=== PATIENT | female | born 1950 | race American Indian/Alaskan Native ===

== ENCOUNTER 2016-09-24 15:04 | Inpatient (IN) | payer MEDICARE ==
[2016-09-24 17:02] LABS: Basophils % (Auto) 0.2 % (0.0-1.8); Hematocrit 40.3 % (30.3-42.9); Hemoglobin 13.5 gm/dl (10.1-14.3); Mean Corpuscular HGB Conc 34 % (30-34); Mean Corpuscular Hemoglobin 33 pg (28-32); Mean Corpuscular Volume 99 fl (79-97); Platelet Count 202 K/mm3 (140-440); Red Blood Count 4.09 M/mm3 (3.65-5.03); Red Cell Distribution Width 13.6 % (13.2-15.2); White Blood Count 14.7 K/mm3 (4.5-11.0)
[2016-09-24 17:33] LABS: Alanine Aminotransferase 49 units/L (7-56); Albumin 3.7 g/dL (3.9-5); Albumin/Globulin Ratio 0.9 %; Alkaline Phosphatase 62 units/L (35-129); Anion Gap 17 mmol/L; BUN/Creatinine Ratio 11.66; Bilirubin,Total 1.1 mg/dL (0.1-1.2); Blood Urea Nitrogen 7 mg/dL (7-17); Calcium 8.7 mg/dL (8.4-10.2); Carbon Dioxide 27 mmol/L (22-30); Chloride 94.5 mmol/L (98-107); Creatine Kinase 41 units/L (30-135); Glucose 124 mg/dL (65-100); Lipase 20 units/L (13-60); Potassium 4.3 mmol/L (3.6-5.0); Sodium 134 mmol/L (137-145); Total Protein 7.9 g/dL (6.3-8.2)
[2016-09-24 17:47] LABS: Creatine Kinase MB < 1.0 ng/mL (0.0-4.0)
[2016-09-24 18:18] LABS: Bilirubin,Urine NEG (Negative); Blood,Urine NEG (Negative); Ketones,Urine TR mg/dL (Negative); Leukocyte Esterase,Urine TR (Negative); Mucus,Urine FEW /HPF; Nitrite,Urine POS (Negative); Protein,Urine <15 mg/dL mg/dL (Negative)
[2016-09-25] MEDS ORDERED: TYLENOL PO ONE (00:42)
[2016-09-25] MEDS ORDERED: ZOFRAN IV ONE (02:43)
[2016-09-25] MEDS ORDERED: MORPHINE IV ONE (02:43)
--- NOTE | 2016-09-25 03:51 | Ultrasound Report ---
FINAL REPORT PROCEDURE: US ABDOMEN LIMITED TECHNIQUE: Real-time sonography in multiple planes of the gallbladder fossa and CBD with imaging of the adjacent liver, pancreas, and right kidney was performed with image documentation. CPT 11724 HISTORY: ruq pain COMPARISON: No prior studies are available for comparison. FINDINGS: Liver: There is diffuse fatty infiltration of the liver. There is no liver mass.. Gallbladder: Gallbladder is distended. There is gallbladder wall thickening and pericholecystic fluid. There is sludge. There are stones in the gallbladder neck.. Intrahepatic bile ducts: Normal . Extrahepatic bile ducts: Common bile duct measures 4 millimeters.. Pancreas: Normal as visualized with suboptimal depiction of the pancreatic tail. Right kidney: Normal echotexture. No focal renal mass, calculus, or hydronephrosis. Other: There is no ascites. IMPRESSION: There is diffuse fatty infiltration of the liver. There is no liver mass.. Gallbladder is distended. There is gallbladder wall thickening and pericholecystic fluid. There is sludge. There are stones in the gallbladder neck.. Common bile duct measures 4 millimeters..
[2016-09-25] MEDS ORDERED: ZOSYN/NS 4.5GM/100ML 4.5 GM/100 ML VIAL IV ONE (04:31)
--- NOTE | 2016-09-25 04:33 | Emergency Department Report ---
ED Abdominal Pain HPI - General Chief Complaint: Abdominal Pain Stated Complaint: ABD PAIN Time Seen by Provider: 09/25/16 02:27 Source: patient Mode of arrival: Ambulatory Limitations: No Limitations - History of Present Illness Initial Comments: 66-year-old female with past medical history of arthritis in, diabetes, and hypertension without any surgical history presents to the hospital complains of right upper quadrant pain radiating to the back since yesterday. Pain is constant, worse palpation or movement. Rated 8/10 in intensity. Initially she felt a gas pain then became more of a stabbing sensation. Positive nausea without vomiting. No reports of fever or dysuria. Severity scale (0 -10): 8 - Related Data Allergies Allergy/AdvReac Type Severity Reaction Status Date / Time No Known Allergies Allergy Unverified 09/24/16 16:32 ED Review of Systems ROS: Stated complaint: ABD PAIN Other details as noted in HPI Comment: All other systems reviewed and negative Other: Constitutional: No fevers chills or weight loss Eyes: No eye pain visual changes or discharge ENT: No ear pain or throat pain Neck: Denies pain Respiratory: Denies cough wheezing shortness of breath Cardiovascular: Denies chest pain, palpitations, syncope GI: As per HPI : Denies dysuria Musculoskeletal: Denies back pain Skin: Denies rash, lesions, erythema Neurologic: Denies headache, numbness, weakness Psychiatric: Denies suicidal ideation, hallucinations ED Past Medical Hx - Past Medical History Hx Hypertension: Yes Hx Diabetes: Yes Hx Arthritis: Yes Additional medical history: glaucoma - Surgical History Past Surgical History?: No ED Physical Exam - General Limitations: No Limitations - Other Other exam information: General: No limitations, patient is alert in no acute distress Head exam: Atraumatic, normocephalic Eyes exam: Normal appearance, pupils equal reactive to light, extraocular movements intact ENT: Moist mucous membrane, normal oropharynx Neck exam: Normal inspection, full range of motion, no meningismus nontender Respiratory exam: Clear to auscultation bilateral, no wheezes, rales, crackles Cardiovascular: Normal rate and rhythm, normal heart sounds Abdomen: Soft, nondistended, right upper quadrant tenderness with palpation, with normal bowel sounds, no rebound, or guarding. Positive Milton sign Extremity: Full range of motion normal inspection no deformity Back: Normal Inspection, full range of motion, no tenderness Neurologic: Alert, oriented x3, cranial nerves intact, no motor or sensory deficit Psychiatric: normal affect, normal mood Skin: Warm, dry, intact ED Course Vital Signs 09/24/16 09/25/16 09/25/16 16:30 00:41 03:23 Temperature 98.5 F 98.4 F Pulse Rate 76 62 Respiratory 20 20 16 Rate Blood Pressure 162/96 Blood Pressure 169/94 [Left] O2 Sat by Pulse 98 99 99 Oximetry 09/25/16 03:38 Temperature 98.4 F Pulse Rate 64 Respiratory 18 Rate Blood Pressure Blood Pressure 132/67 [Left] O2 Sat by Pulse 99 Oximetry - Reevaluation(s) Reevaluation #1: 09/25/16 06:25 Improvement with initial dose of meds. Additional morphine given her residual pain 09/25/16 06:25 - Consultations Consultation #1: 09/25/16 04:[address] Colindres SURGEON. Recommends admission Elisyn, will consult in a.m. ED Medical Decision Making - Lab Data Result diagrams: 09/24/16 16:41 09/24/16 16:41 Lab Results 09/24/16 09/24/16 09/24/16 Range/Units 16:41 16:41 17:40 WBC 14.7 H (4.5-11.0) K/mm3 RBC 4.09 (3.65-5.03) M/mm3 Hgb 13.5 (10.1-14.3) gm/dl Hct 40.3 (30.3-42.9) % MCV 99 H (79-97) fl MCH 33 H (28-32) pg MCHC 34 (30-34) % RDW 13.6 (13.2-15.2) % Plt Count 202 (140-440) K/mm3 Lymph % (Auto) 8.3 L (13.4-35.0) % [place] % (Auto) 6.9 (0.0-7.3) % Eos % (Auto) 0.0 (0.0-4.3) % Baso % (Auto) 0.2 (0.0-1.8) % Lymph # 1.2 (1.2-5.4) K/mm3 [place] # 1.0 H (0.0-0.8) K/mm3 Eos # 0.0 (0.0-0.4) K/mm3 Baso # 0.0 (0.0-0.1) K/mm3 Seg Neutrophils % 84.6 H (40.0-70.0) % Seg Neutrophils # 12.5 H (1.8-7.7) K/mm3 Sodium 134 L (137-145) mmol/L Potassium 4.3 (3.6-5.0) mmol/L Chloride 94.5 L (98-107) mmol/L Carbon Dioxide 27 (22-30) mmol/L Anion Gap 17 mmol/L BUN 7 (7-17) mg/dL Creatinine 0.6 L (0.7-1.2) mg/dL Estimated GFR > 60 ml/min BUN/Creatinine Ratio 11.66 % Glucose 124 H (65-100) mg/dL Calcium 8.7 (8.4-10.2) mg/dL Total Bilirubin 1.1 (0.1-1.2) mg/dL AST 70 H (5-40) units/L ALT 49 (7-56) units/L Alkaline Phosphatase 62 (35-129) units/L Total Creatine Kinase 41 (30-135) units/L CK-MB (CK-2) < 1.0 (0.0-4.0) ng/mL CK-MB (CK-2) Rel Index 2.4 (0-4) Troponin T < 0.010 (0.00-0.029) ng/mL Total Protein 7.9 (6.3-8.2) g/dL Albumin 3.7 L (3.9-5) g/dL Albumin/Globulin Ratio 0.9 % Lipase 20 (13-60) units/L Urine Color Yellow (Yellow) Urine Turbidity Clear (Clear) Urine pH 7.0 (5.0-7.0) Ur Specific [place] 1.015 (1.003-1.030) Urine Protein <15 mg/dl (Negative) mg/dL Urine Glucose (UA) Neg (Negative) mg/dL Urine Ketones Tr (Negative) mg/dL Urine Blood Neg (Negative) Urine Nitrite Pos (Negative) Urine Bilirubin Neg (Negative) Urine Urobilinogen 4.0 (<2.0) mg/dL Ur Leukocyte Esterase Tr (Negative) Urine WBC (Auto) 6.0 (0.0-6.0) /HPF Urine RBC (Auto) 3.0 (0.0-6.0) /HPF U Epithel Cells (Auto) 1.0 (0-13.0) /HPF Urine Mucus Few /HPF - Radiology Data Radiology results: report reviewed (abd us: findings of cholecystitis see report) - Medical Decision Making Patient be admitted to the hospital for further treatment for acute cholecystitis. Zosyn, morphine, Zofran, and normal saline initiated in the ED. Surgery to consult - Differential Diagnosis cholecystitis, biliary colic, hepatitis, pancreatitis Critical Care Time: No Critical care attestation.: If time is entered above; I have spent that time in minutes in the direct care of this critically ill patient, excluding procedure time. ED Disposition Clinical Impression: Acute cholecystitis Disposition: OP ADMITTED IP TO THIS HOSP Is pt being admited?: Yes Condition: Stable Time of Disposition: 04:32 (Dr shipley/hosp)
[2016-09-25] MEDS ORDERED: NACL 0.9% 1000 ML 1,000 ML IV ONE (04:36)
[2016-09-25] MEDS ORDERED: ZOFRAN IV PRN ×3 (07:59→14:04)
[2016-09-25] MEDS: NOVOLOG SUB-Q SCH ×3 (08:39→19:00)
[2016-09-25] MEDS ORDERED: DULCOLAX PR PRN (09:00)
[2016-09-25] MEDS ORDERED: DILAUDID IV PRN (09:00)
[2016-09-25] MEDS ORDERED: MILK OF MAGNESIA PO PRN (09:00)
--- NOTE | 2016-09-25 09:27 | Admit Criteria Form ---
Admission Criteria Documentation: GALLBLADDER OR BILE DUCT INFLAMMATION OR STONE Clinical Indications for Admission to Inpatient Care ( Place 'X' for any and all applicable criteria): Admission is indicated for patients with ANY ONE of the following(1)(2)(3)(4)(5) : [ X]I. Acute cholecystitis as indicated by ALL of the following: [ X]a) Right upper quadrant pain, mass, or tenderness [X ]b) Systemic signs of inflammation indicated by ANY ONE of the following: [ ]i) Fever [ ]ii) C-reactive protein level greater than 10 mg/L (95 nmol/L) [X]iii) White blood cell count greater than 10,000/mm3 (10 x109/L) or less than 4000/mm3 (4 x109/L) [ ]II. Inpatient admission required rather than observation care (Also use Gallbladder or Bile Duct Inflammation or Stone: Observation Care as appropriate) because of ANY ONE of the following: [ ]a) Common bile duct obstruction diagnosed [ ]b) Vomiting that is severe or persistent [ ]c) Severe pain requiring acute inpatient management [ ]d) Signs of intestinal obstruction or peritonitis [A] [ ]e) Severe electrolyte abnormalities requiring inpatient care [ ]f) Absent bowel sounds with complete ileus(8) [ ]g) Hemodynamic instability [ ]h) High fever or infection requiring inpatient admission as indicated by ANY ONE of the following (9): [ ]1) Appropriate outpatient or observation care antimicrobial Treatment. unavailable, not effective, or not feasible [ ]2) Temperature greater than 104.9 degrees F (40.5 degrees C) (oral) [ ]3) Temperature greater than 103.1 degrees F (39.5 degrees C) (oral) or less than 96.8 degrees F (36 degrees C) (rectal) that does not respond to all emergency treatment measures [ ]4) Documented bacteremia [ ]i) IV fluid to replace significant ongoing losses (greater than 3 L/m2 per day) [ ]j) Percutaneous or open drainage (eg, abscess, biliary tract) procedures [ ]k) Immediate inpatient surgery [ ]l) Other condition, treatment or monitoring requiring inpatient admission [ ]III. Acute cholangitis as indicated by ALL of the following(9)(10): [ ]a) Systemic signs of inflammation indicated by ANY ONE of the following: [ ]i) Fever [ ]ii) C-reactive protein level greater than 10 mg/L (95 nmol /L) [ ]iii) White blood cell count greater than 10,000/mm3 (10 x109/L) or less than 4000/mm3 (4 x109/L) [ ]b) Evidence of common bile duct disease indicated by ANY ONE of the following: [ ]i) Total serum bilirubin level greater than or equal to 2 mg/dL (34 micromoles/L) [ ]ii) Liver function test (alkaline phosphatase (ALP), r- glutamyltransferase (GGT), aspartate aminotransferase (AST), or alanine aminotransferase (ALT)) greater than 1.5 times the upper limit of normal[B] [ ]iii) Hepatobiliary imaging showing biliary dilatation or evidence of etiology (eg, stricture, stone, previously placed stent) Extended stay beyond goal length of stay may be needed for (1)(2)): [ ]a) Bacteremia or Hemodynamic instability [ ]b) Cholecystectomy [ ]c) Other surgical procedure(24) [ ]d) Percutaneous or endoscopic ultrasound-guided cholecystostomy The original [facility] content created by [facility] has been revised. The portions of the content which have been revised are identified through the use of italic text or in bold, and [facility] has neither reviewed nor approved the modified material. All other unmodified content is copyright [facility]. Please see references footnoted in the original [facility] edition 2016 Admission Criteria Met: Yes
--- NOTE | 2016-09-25 09:37 | History and Physical Report ---
CHIEF COMPLAINT: Abdominal pain, right upper quadrant. HISTORY OF PRESENT ILLNESS: A 66-year-old female with history of diabetes, hypertension, and osteoarthritis, comes in for right upper quadrant pain radiating to the back since yesterday. The pain is constant and 10 on a scale of 1-10. Also, nausea present. No vomiting. No fever. PAST MEDICAL HISTORY: Significant for diabetes, hypertension, glaucoma, and arthritis. PAST SURGICAL HISTORY: None. FAMILY HISTORY: Significant for hypertension. REVIEW OF SYSTEMS: CONSTITUTIONAL: No fever, no chills, no loss of weight nor lot of weight gain. HEENT: Unremarkable. No sore throat, no postnasal drip. NECK: There is no neck stiffness. CARDIOVASCULAR AND RESPIRATORY: No shortness of breath, no chest pain. No palpitations. No diaphoresis. GASTROINTESTINAL: Right upper quadrant pain associated with nausea present. GENITOURINARY: No dysuria, no flank pain. MUSCULOSKELETAL: No joint pains. No muscle pains. CENTRAL NERVOUS SYSTEM: No syncope, no seizures. SKIN: No rashes. PSYCHIATRIC: No depression. No homicidal or suicidal thoughts. ENDOCRINE: No polyphagia, polydipsia or polyuria. No cold intolerance. A 14-point review of system is done, essentially negative other than the right upper quadrant pain and nausea. PHYSICAL EXAMINATION: GENERAL: Elderly female, cooperative during examination. VITAL SIGNS: Blood pressure is 132/67, temperature is 98.4, pulse is 64, respirations are 18. HEENT: Unremarkable. Pupils equal and reactive. NECK: Supple, no lymphadenopathy, no thyromegaly. LUNGS: Clear to auscultation and percussion. Good air entry. CARDIOVASCULAR: S1, S2 heard. No gallop, no murmur, no rub. Apical impulse in left fifth intercostal space and midclavicular line. ABDOMEN: Right upper quadrant tenderness present. No guarding, no rigidity. Bowel sounds are normal. EXTREMITIES: Good pedal pulses. No pedal edema. CENTRAL NERVOUS SYSTEM: Alert and oriented x 4, nonfocal exam. SKIN: Normal. LABORATORY DATA: White count is 14,700; H and H is 13.5 and 40.3; platelet count is 202,000. Sodium is 134, potassium is 4.3, chloride is 94.5. BUN and creatinine 7 and 0.6. Glucose is 124, calcium is 8.7. AST 70, ALT is 49, albumin is 3.7. Urine protein is less than 15. IMPRESSION: Abdominal ultrasound shows gallbladder distended and gallbladder wall thickening and pericholecystic fluid present. Also, sludge present and stones in the gallbladder neck consistent with acute cholecystitis. ASSESSMENT AND PLAN: 1. Acute cholecystitis. Surgery, Dr. Colindres is consulted for possible cholecystectomy 2. Hypertension. We will renew home medication reconciliation. We will put her on a Catapres patch as the patient is n.p.o. 3. Type 2 diabetes, coverage for now. 4. Deep venous thrombosis prophylaxis. Lovenox 40 mg subcutaneously daily. SCDs for now. Lovenox after the surgery. Check hemoglobin A1c too. Dilaudid and Zofran for pain management. JOB# [id number] MAXIM/CHUY DICKINSON
--- NOTE | 2016-09-25 09:42 | Event Note ---
Date: 09/25/16 See H/p in reports Acute cholecystitis HTN T2DM
--- NOTE | 2016-09-25 09:44 | Consultation ---
History of Present Illness Consult date: 09/25/16 Reason for consult: gallstones Chief complaint: Right upper quadrant abdominal pain. - History of present illness History of present illness: 66 year old female came to the hospital because of right upper quadrant abdominal pain radiated to the back. She reports nausea. Gallbladder ultrasound showed gallstones with thickened wall. Past History Past Medical History: diabetes, hypertension, hyperlipidemia Past Surgical History: Other (tubal ligation) Medications and Allergies Allergies Allergy/AdvReac Type Severity Reaction Status Date / Time No Known Allergies Allergy Unverified 09/24/16 16:32 Active Meds: Active Medications Acetaminophen (Tylenol) 650 mg PO Q4H PRN PRN Reason: Pain MILD(1-3)/Fever >100.5/DURÁN Bisacodyl (Dulcolax) 10 mg [place] QDAY PRN PRN Reason: Constipation unrelieved by MOM Enoxaparin Sodium (Lovenox) 40 mg SUB-Q QDAY KAR Hydromorphone HCl (Dilaudid) 1 mg IV Q3H PRN PRN Reason: Pain , Severe (7-10) Last Admin: 09/25/16 08:15 Dose: 1 mg Sodium Chloride (Nacl 0.9% 1000 Ml) 1,000 mls @ 125 mls/hr IV ONCE ONE Stop: 09/25/16 12:35 Last Admin: 09/25/16 05:09 Dose: 125 mls/hr Sodium Chloride (Nacl 0.9% 1000 Ml) mls @ 75 mls/hr IV DIRECT KAR Insulin Aspart (Novolog) 0 units SUB-Q Q6HR KAR PRN Reason: Protocol Last Admin: 09/25/16 08:39 Dose: Not Given Magnesium Hydroxide (Milk Of Magnesia) 30 ml PO Q4H PRN PRN Reason: Constipation Ondansetron HCl (Zofran) 4 mg IV Q3H PRN PRN Reason: N/V unrelieved by Reglan Review of Systems All systems: negative (present complaint) Exam Vital Signs Temp Pulse Resp BP Pulse Ox 98.5 F 76 20 162/96 98 09/24/16 16:30 09/24/16 16:30 09/24/16 16:30 09/24/16 16:30 09/24/16 16:30 - General physical appearance Positive: well developed, well nourished, no distress - Eyes Positive: PERRL, normal occular movement - ENT Positive: normal mucosa, no congestion - Neck Positive: no masses, no bruits, trachea midline, no venous distension - Respiratory Positive: normal expansion, normal respiratory effort, clear to auscultation - Cardiovascular Rhythm: regular Heart Sounds: Present: S1 & S2 - Extremities Extremities: no ischemia, No edema - Breasts Breasts: deferred - Abdomen Abdomen: Present: soft, tender (in the right upper quadrant with positive Milton 's sign), bowel sounds normal - Genitourinary Female Genitourinary: deferred - Integumentary no rash, no growths, no abnormal pigmentation - Neurologic Neurologic: alert and oriented to time, place and person, motor strength and sensation are grossly intact - Musculoskeletal normal gait, normal posture - Psychiatric Psychiatric: appropriate mood/affect, intact judgment & insight Results - Labs 09/24/16 16:41 09/24/16 16:41 Abnormal lab results 09/25/16 Range/Units 08:29 POC Glucose 135 H (70-105) - Imaging US - abdomen: report reviewed, image reviewed Assessment and Plan Impression: #1. Acute cholecystitis and cholelithiasis. #2. Diabetes. #3. Hypertension. Plans: Laparoscopic cholecystectomy. The patient was explained the operative procedure, indications and the risk and complications. She requested to proceed with the operation.
[2016-09-25] MEDS ORDERED: DIPRIVAN 10 MG/ML IV ONE (10:00)
[2016-09-25] MEDS ORDERED: DILAUDID ONE ×2 (10:00→12:54)
[2016-09-25] MEDS ORDERED: LOVENOX SUB-Q SCH (10:00)
[2016-09-25] MEDS ORDERED: ZEMURON IV ONE (10:01)
[2016-09-25] MEDS ORDERED: XYLOCAINE MPF 2% ONE (10:01)
[2016-09-25] MEDS ORDERED: BLOXIVERZ ONE (10:02)
[2016-09-25] MEDS ORDERED: ROBINUL ONE (10:03)
--- NOTE | 2016-09-25 10:20 | Anesthesia Consultation ---
Anesthesia Consult and Med Hx Date of service: 09/25/16 - Airway Anesthetic Teeth Evaluation: Poor ROM Head & Neck: Adequate Mental/Hyoid Distance: Adequate Mallampati Class: Class II Intubation Access Assessment: Probably Good - Pulmonary Exam CTA: Yes - Cardiac Exam Cardiac Exam: RRR Anesthetic Concerns: systolic murmer - Pre-Operative Health Status ASA Pre-Surgery Classification: ASA3 Proposed Anesthetic Plan: General - Pulmonary Hx Smoking: Yes (40yr history) - Cardiovascular System Hx Hypertension: Yes Hx Heart Attack/AMI: Yes (1994) Hx Heart Murmur: Yes - Endocrine Hx Non-Insulin Dependent Diabetes: Yes
--- NOTE | 2016-09-25 10:21 | Anesthesia Day of Surgery ---
Anesthesia Day of Surgery - Day of Surgery Patient Examined: Yes Patient H&P Reviewed: Yes Patient is NPO: Yes
[2016-09-25] MEDS: NACL 0.9% 1000 ML 1,000 ML IV SCH ×2 (10:30→19:00)
[2016-09-25] MEDS ORDERED: PEPCID PO NR (11:00)
[2016-09-25] MEDS ORDERED: ANCEF/STERILE WATER 2 GM/20 ML IV NR (11:00)
[2016-09-25] MEDS ORDERED: NACL 0.9% 1000 ML 1,000 ML IV SCH (11:00)
[2016-09-25] MEDS ORDERED: VERSED IV NR (11:00)
[2016-09-25] MEDS ORDERED: ZOFRAN ONE (11:33)
[2016-09-25] MEDS ORDERED: DECADRON ONE (11:33)
[2016-09-25] MEDS ORDERED: NACL 0.9% IR ONE ×2 (12:08)
[2016-09-25] MEDS ORDERED: MARCAINE 0.5% INFILTRATI ONE (12:08)
[2016-09-25] MEDS ORDERED: NACL 0.9% 1000 ML 1,000 ML ONE (12:25)
--- NOTE | 2016-09-25 13:59 | Operative Report ---
Operative Report Operative Report: Date of operation: 09/25/2016 Preoperative diagnosis: Cholelithiasis and acute cholecystitis. Postoperative diagnosis: Acute cholecystitis and cholelithiasis. Operation: Laparoscopic and open cholecystectomy. Surgeon: Te Colindres M.D. Asst.: Darshan Andrew M.D. Findings: 66 years old female with clinical and radiological evidence of acute cholecystitis and cholelithiasis. At operation we found a very large gallbladder with very thickened abreu containing multiple large gallstones and covered with omental adhesions. The anatomy at the mick hepatis was confusing and there was some oozing from the dissected adhesions so at this time we decided to up in the abdominal cavity. Found that the cystic duct was fairly small. The common bile duct seemed to be normal. Operation: Under general anesthesia the patient was prepped and draped in the usual sterile manner. After proper timeout R 10.5% was injected in the umbilical area and a 5 mm incision was made with a #11 blade. Through this incision a Veress needed was put in the abdominal cavity which was insufflated with carbon dioxide to 15 mmHg. The needle was removed and a 5 mm port was put in place using the Symplified system. Through this port a 5 mm telescope was passed. Then under direct vision and after injecting Marcaine 0.5%, a 10 mm port was put in the epigastric area and two 5 mm ports were put in the right subcostal area. The gallbladder was then emptied of bile with a laparoscopic needle through one of the 5 mm ports. Gallbladder was grasped by the fundus. The omental adhesions were taken down by blunt and sharp dissection using the Endo Latoya with the cautery. The brother was then grasped by the infundibulum but we had a hard time figuring out the anatomy of the mick hepatis so at this time we decided to convert to one open procedure. A right subcostal incision was done with a #10 blade. Dissection was carried down to the anterior rectus sheath and fascia of the external oblique using the electrocautery. These structures were divided with electrocautery. Then the rectus muscles was dissected from the posterior sheath and an [place] retractor was passed under it. Then the muscle was divided with electrocautery. The posterior sheath and the peritoneum were entered with the Metzenbaum scissors and the electrocautery. Immediately abdominal lap was put into Ng's pouch. Then we put in place the Bookwalter retractor. The gallbladder was then grasped by the fundus and was started dissection by dividing the peritoneum on top of the gallbladder continued the dissection bluntly and sharply towards the infundibulum. Cystic artery was identified and divided distal to a ligature of 2-0 Vicryl. Then the cystic duct was identified and divided distal to a right angle clamp and tied with a 2-0 Vicryl ligature and a Hemoclip. After this was done the area was irrigated with copious amount of normal saline solution. Then a #19 Alexander drain was brought out through one of the laparoscopic port sites. Was fixed with a 2-0 silk suture. Drain was put in the Ng's pouch. Preparation was then made for closure. Abdominal wall was closed in 2 layers. Layer was running #1 Vicryl for the peritoneal and posterior rectus sheath and fascia of the internal oblique. Then the anterior rectus sheath and the fascia of the external oblique were approximated with multiple interrupted stitches of #1 Vicryl. Wound was irrigated with copious amount of normal saline solution. Then the skin edges were approximated with skin travis. All the laparoscopic ports sites were also approximated with skin travis. She was then awakened, extubated and transferred to the recovery room in good condition. Exploratory Estimated blood loss: 400 mL. Intravenous fluid replacement: Crystalloids. Condition: Stable. Specimens: Gallbladder. Complications: None.
[2016-09-25] MEDS: DILAUDID IV PRN ×4 (14:05→15:00)
[2016-09-25] MEDS ORDERED: NARCAN 0.4 MG/1 ML IV PRN (14:06)
--- NOTE | 2016-09-25 14:17 | Event Note ---
Date: 09/25/16 Tried to communicate with the patient's daughter who informed her about this surgical procedure performed in the outcome. There was no ulcer but I left a message. Phone number I called was [phone].
[2016-09-25] MEDS ORDERED: BENADRYL IV PRN (14:19)
--- NOTE | 2016-09-25 14:21 | Post Anesthesia Evaluation ---
- Post Anesthesia Evaluation Patient Participated: Yes Airway Patent: Yes Stable Respiratory Function: Yes Nausea/Vomiting: No Temp > 96.8F: Yes Pain Manageable: Yes Adequeate Hydration: Yes Anesthesia Complications: No Block Receding Appropriately: Not Applicable Patient on Ventilator: No
[2016-09-25] MEDS: DILAUDID PCA 6MG/30ML IV SCH (14:30)
[2016-09-25 15:32] LABS: Hematocrit 36.7 % (30.3-42.9); Hemoglobin 12.1 gm/dl (10.1-14.3)
--- NOTE | 2016-09-25 15:47 | Event Note ---
Date: 09/25/16 Patient seen and examined. surgical note indicates:At operation we found a very large gallbladder with very thickened abreu containing multiple large gallstones and covered with omental adhesions. The anatomy at the mick hepatis was confusing and there was some oozing from the dissected adhesions so at this time we decided to up in the abdominal cavity. esbl: 400cc will continue to monitor accuchecks, BP, pain control. Encourage incentive spirometer. Anticipate discharge when ok with surgery
[2016-09-25] MEDS: ZOSYN/NS 4.5GM/100ML 4.5 GM/100 ML VIAL IV SCH (20:00)
[2016-09-25] MEDS: SENOKOT S PO SCH (22:35)
[2016-09-25] MEDS: HEPARIN SUB-Q SCH (22:36)
[2016-09-26] MEDS: ZOSYN/NS 4.5GM/100ML 4.5 GM/100 ML VIAL IV SCH ×3 (02:00→18:40)
[2016-09-26 05:50] LABS: Basophils % (Auto) 0.1 % (0.0-1.8); Hematocrit 34.2 % (30.3-42.9); Hemoglobin 11.4 gm/dl (10.1-14.3); Mean Corpuscular HGB Conc 33 % (30-34); Mean Corpuscular Hemoglobin 34 pg (28-32); Platelet Count 187 K/mm3 (140-440); Red Blood Count 3.37 M/mm3 (3.65-5.03); Red Cell Distribution Width 13.7 % (13.2-15.2); White Blood Count 12.6 K/mm3 (4.5-11.0)
[2016-09-26 05:52] LABS: Mean Corpuscular Volume 101 fl (79-97)
[2016-09-26 06:11] LABS: Alanine Aminotransferase 26 units/L (7-56); Albumin 2.7 g/dL (3.9-5); Albumin/Globulin Ratio 0.8 %; Alkaline Phosphatase 45 units/L (35-129); BUN/Creatinine Ratio 21.25; Bilirubin,Total 1.3 mg/dL (0.1-1.2); Blood Urea Nitrogen 17 mg/dL (7-17); Calcium 7.5 mg/dL (8.4-10.2); Carbon Dioxide 24 mmol/L (22-30); Chloride 106.1 mmol/L (98-107); Glucose 107 mg/dL (65-100); Potassium 4.1 mmol/L (3.6-5.0); Sodium 140 mmol/L (137-145); Total Protein 6.1 g/dL (6.3-8.2)
[2016-09-26 06:16] LABS: Anion Gap 14 mmol/L
[2016-09-26] MEDS: NOVOLOG SUB-Q SCH ×4 (06:54→17:37)
[2016-09-26] MEDS: HEPARIN SUB-Q SCH ×4 (06:56→22:49)
[2016-09-26] MEDS: SENOKOT S PO SCH ×2 (09:59→22:50)
--- NOTE | 2016-09-26 10:46 | Query- Nutrition ---
Dear Dr. Cesar Nuñez Date: September 26, 2016 Sander Operator/CDS: Juancarlos Scottradha Phone#: Exercise your independent professional judgment when responding to query. Questions asked do not imply a particular answer is desired or expected. We greatly appreciate your clarification on this issue. Clinical Documentation States: 66 y/o F with history of arthritis, diabetes & HTN is admitted for RUQ pain s/p cholecystectomy (lap converted to open) ED H&P by Dr. Ferrell on 09/25 states : "Acute cholecystitis" Operative Report by Dr. Colindres on 09/25 states : "At operation we found a very large gallbladder with very thickened abreu containing multiple large gallstones and covered with omental adhesions. The anatomy at the mick hepatis was confusing and there was some oozing from the dissected adhesions so at this time we decided to up in the abdominal cavity." Clinical Findings Show: 2/3 Lymph# 1100 L Albumin 2.7 L Please select the most appropriate option 3 [x] Mild Malnutrition [] Mild - Moderate Malnutrition [] Moderate - Severe Malnutrition [] Severe Malnutrition Serum Albumin 2.8 to 3.4 g/dl or Pre-albumin 5 to 17 mg/dl1,2 Inadequate nutritional intake1,2,3,4 NPO > 5 days Weight loss: 5% in 1 month or 7.5% in 3 months or 10% in 6 months1, 3,4 BMI 16 to 18.4 or Weight <90% of ideal body weight1,2,3,4 Serum Albumin < 2.8 g/ dl1,2 Lymphocytes < 1500/ L2 Inadequate nutritional intake3, high stress e.g. major trauma, sepsis,pancreatitis, bell etc. Decubitus ulcers1,2, , skin breakdown2, easy hair pluckability2 Weight <80% standard for height2 Triceps skin fold <3 mm2 Mid-arm muscle circumference <15 cm2 Creatinine-height index <60% standard2 [ ] Cachexia [ ] Emaciated w/Malnutrition [ ] Other: [ ] Unable to determine [ ] Comment/Explanation: Present on Admission: [y ] Yes (Y) [ ] Clinically undeterminable (W) [ ] No (N) Please also document response in your Progress Notes and/or Discharge Summary and indicate if the condition was present on admission. RYAND
--- NOTE | 2016-09-26 13:37 | Progress Note ---
Assessment and Plan IMP: Stable 1st post op day open jacquie. PLAN: Ice chips po. Labs in am. Subjective Date of service: 09/26/16 Patient Reports: Positive: no new complaints, pain is less, voiding w/o difficulty, no flatus, no bowel movement Objective Vital Signs - 12hr 09/26/16 09/26/16 04:15 08:00 Temperature 98.8 F 99.9 F H Pulse Rate [ 100 H 93 H Left] Respiratory 20 18 Rate Blood Pressure 107/69 118/66 [Left Arm] O2 Sat by Pulse 92 97 Oximetry - Abdomen soft, tender (op site), bowel sounds hypoactive, wound (dressings dry and clear. ) - Labs 09/26/16 05:24 09/26/16 05:24 Diabetes panel 09/26/16 Range/Units 05:24 Sodium 140 (137-145) mmol/L Potassium 4.1 (3.6-5.0) mmol/L Chloride 106.1 (98-107) mmol/L Carbon Dioxide 24 (22-30) mmol/L BUN 17 (7-17) mg/dL Creatinine 0.8 (0.7-1.2) mg/dL Glucose 107 H (65-100) mg/dL Calcium 7.5 L (8.4-10.2) mg/dL AST 46 H (5-40) units/L ALT 26 (7-56) units/L Alkaline Phosphatase 45 (35-129) units/L Total Protein 6.1 L D (6.3-8.2) g/dL Albumin 2.7 L (3.9-5) g/dL Calcium panel 09/26/16 Range/Units 05:24 Calcium 7.5 L (8.4-10.2) mg/dL Albumin 2.7 L (3.9-5) g/dL Pituitary panel 09/26/16 Range/Units 05:24 Sodium 140 (137-145) mmol/L Potassium 4.1 (3.6-5.0) mmol/L Chloride 106.1 (98-107) mmol/L Carbon Dioxide 24 (22-30) mmol/L BUN 17 (7-17) mg/dL Creatinine 0.8 (0.7-1.2) mg/dL Glucose 107 H (65-100) mg/dL Calcium 7.5 L (8.4-10.2) mg/dL Adrenal panel 09/26/16 Range/Units 05:24 Sodium 140 (137-145) mmol/L Potassium 4.1 (3.6-5.0) mmol/L Chloride 106.1 (98-107) mmol/L Carbon Dioxide 24 (22-30) mmol/L BUN 17 (7-17) mg/dL Creatinine 0.8 (0.7-1.2) mg/dL Glucose 107 H (65-100) mg/dL Calcium 7.5 L (8.4-10.2) mg/dL Total Bilirubin 1.3 H (0.1-1.2) mg/dL AST 46 H (5-40) units/L ALT 26 (7-56) units/L Alkaline Phosphatase 45 (35-129) units/L Total Protein 6.1 L D (6.3-8.2) g/dL Albumin 2.7 L (3.9-5) g/dL
--- NOTE | 2016-09-26 16:34 | Progress Note ---
Assessment and Plan Assessment and plan: 66-year-old female admitted with abdominal pain noted to have acute cholecystitis * Acute cholecystitis postop day 1 open cholecystectomy * Hypertension * Leukocytosis secondary to cholecystitis * Type 2 diabetes mellitus * Hyperbilirubinemia Plan * Continue IV fluids at least 1 more day * Continue insulin control and pressure control * Okay for ice chips deferred to surgery for one diet should be resumed * Trend bilirubin level in a.m. * Encourage ambulation * Incentive spirometer discussed in detail with the patient patient to utilize to prevent atelectasis. * DVT and GI prophylaxis History Interval history: Patient seen and examined this morning in no acute distress, states that she is hungry mild pain on the surgical site. Denies any chest pain, nausea, vomiting, diarrhea No fever noted blood pressure controlled No adverse events reported to me by nursing staff Hospitalist Physical - Physical exam Narrative exam: VITAL SIGNS: Reviewed. GENERAL: The patient appeared well nourished and normally developed. Vital signs as documented. HEAD: No signs of head trauma. EYES: Pupils are equal. Extraocular motions intact. EARS: Hearing grossly intact. MOUTH: Oropharynx is normal. NECK: No adenopathy, no JVD. CHEST: Chest with clear breath sounds bilaterally. No wheezes, rales, or rhonchi. CARDIAC: Regular rate and rhythm. S1 and S2, without murmurs, gallops, or rubs. VASCULAR: No Edema. Peripheral pulses normal and equal in all extremities. ABDOMEN: Soft, surgical dressing in place, mild tenderness. STACIE drain in place. No sign of distention. No rebound or guarding, and no masses palpated. Bowel Sounds normal. MUSCULOSKELETAL: Good range of motion of all major joints. Extremities without clubbing, cyanosis or edema. NEUROLOGIC EXAM: Alert and oriented x 3. No focal sensory or strength deficits. Speech normal. Follows commands. PSYCHIATRIC: Mood normal. SKIN: No rash or lesions. - Constitutional Vitals: Temp Pulse Resp BP Pulse Ox 98.9 F 90 18 120/70 97 09/26/16 15:48 09/26/16 15:48 09/26/16 15:48 09/26/16 15:48 09/26/16 08:00 Results - Labs CBC & Chem 7: 09/26/16 05:24 09/26/16 05:24 Labs: Laboratory Last Values WBC 12.6 K/mm3 (4.5-11.0) H 09/26/16 05:24 RBC 3.37 M/mm3 (3.65-5.03) L 09/26/16 05:24 Hgb 11.4 gm/dl (10.1-14.3) 09/26/16 05:24 Hct 34.2 % (30.3-42.9) 09/26/16 05:24 MCV 101 fl (79-97) H 09/26/16 05:24 MCH 34 pg (28-32) H 09/26/16 05:24 MCHC 33 % (30-34) 09/26/16 05:24 RDW 13.7 % (13.2-15.2) 09/26/16 05:24 Plt Count 187 K/mm3 (140-440) 09/26/16 05:24 Lymph % (Auto) 9.1 % (13.4-35.0) L 09/26/16 05:24 [place] % (Auto) 8.4 % (0.0-7.3) H 09/26/16 05:24 Eos % (Auto) 0.0 % (0.0-4.3) 09/26/16 05:24 Baso % (Auto) 0.1 % (0.0-1.8) 09/26/16 05:24 Lymph # 1.1 K/mm3 (1.2-5.4) L 09/26/16 05:24 [place] # 1.1 K/mm3 (0.0-0.8) H 09/26/16 05:24 Eos # 0.0 K/mm3 (0.0-0.4) 09/26/16 05:24 Baso # 0.0 K/mm3 (0.0-0.1) 09/26/16 05:24 Seg Neutrophils % 82.4 % (40.0-70.0) H 09/26/16 05:24 Seg Neutrophils # 10.4 K/mm3 (1.8-7.7) H 09/26/16 05:24 Sodium 140 mmol/L (137-145) 09/26/16 05:24 Potassium 4.1 mmol/L (3.6-5.0) 09/26/16 05:24 Chloride 106.1 mmol/L (98-107) 09/26/16 05:24 Carbon Dioxide 24 mmol/L (22-30) 09/26/16 05:24 Anion Gap 14 mmol/L 09/26/16 05:24 BUN 17 mg/dL (7-17) 09/26/16 05:24 Creatinine 0.8 mg/dL (0.7-1.2) 09/26/16 05:24 Estimated GFR > 60 ml/min 09/26/16 05:24 BUN/Creatinine Ratio 21.25 % 09/26/16 05:24 Glucose 107 mg/dL (65-100) H 09/26/16 05:24 POC Glucose 97 (70-105) 09/26/16 15:57 Hemoglobin A1c 5.2 % (4-6) 09/25/16 09:21 Calcium 7.5 mg/dL (8.4-10.2) L 09/26/16 05:24 Total Bilirubin 1.3 mg/dL (0.1-1.2) H 09/26/16 05:24 AST 46 units/L (5-40) H 09/26/16 05:24 ALT 26 units/L (7-56) 09/26/16 05:24 Alkaline Phosphatase 45 units/L (35-129) 09/26/16 05:24 Total Creatine Kinase 41 units/L (30-135) 09/24/16 16:41 CK-MB (CK-2) < 1.0 ng/mL (0.0-4.0) 09/24/16 16:41 CK-MB (CK-2) Rel Index 2.4 (0-4) 09/24/16 16:41 Troponin T < 0.010 ng/mL (0.00-0.029) 09/24/16 16:41 Total Protein 6.1 g/dL (6.3-8.2) L D 09/26/16 05:24 Albumin 2.7 g/dL (3.9-5) L 09/26/16 05:24 Albumin/Globulin Ratio 0.8 % 09/26/16 05:24 Lipase 20 units/L (13-60) 09/24/16 16:41 Urine Color Yellow (Yellow) 09/24/16 17:40 Urine Turbidity Clear (Clear) 09/24/16 17:40 Urine pH 7.0 (5.0-7.0) 09/24/16 17:40 Ur Specific [place] 1.015 (1.003-1.030) 09/24/16 17:40 Urine Protein <15 mg/dl mg/dL (Negative) 09/24/16 17:40 Urine Glucose (UA) Neg mg/dL (Negative) 09/24/16 17:40 Urine Ketones Tr mg/dL (Negative) 09/24/16 17:40 Urine Blood Neg (Negative) 09/24/16 17:40 Urine Nitrite Pos (Negative) 09/24/16 17:40 Urine Bilirubin Neg (Negative) 09/24/16 17:40 Urine Urobilinogen 4.0 mg/dL (<2.0) 09/24/16 17:40 Ur Leukocyte Esterase Tr (Negative) 09/24/16 17:40 Urine WBC (Auto) 6.0 /HPF (0.0-6.0) 09/24/16 17:40 Urine RBC (Auto) 3.0 /HPF (0.0-6.0) 09/24/16 17:40 U Epithel Cells (Auto) 1.0 /HPF (0-13.0) 09/24/16 17:40 Urine Mucus Few /HPF 09/24/16 17:40
[2016-09-26] MEDS: DILAUDID PCA 6MG/30ML IV SCH (17:24)
[2016-09-26] MEDS: NACL 0.9% 1000 ML 1,000 ML IV SCH (22:49)
[2016-09-27] MEDS: ZOSYN/NS 4.5GM/100ML 4.5 GM/100 ML VIAL IV SCH ×3 (02:10→18:40)
[2016-09-27 05:15] LABS: Basophils % (Auto) 0.2 % (0.0-1.8); Hematocrit 29.1 % (30.3-42.9); Hemoglobin 9.7 gm/dl (10.1-14.3); Mean Corpuscular HGB Conc 33 % (30-34); Mean Corpuscular Hemoglobin 33 pg (28-32); Mean Corpuscular Volume 100 fl (79-97); Platelet Count 156 K/mm3 (140-440); Red Blood Count 2.92 M/mm3 (3.65-5.03); Red Cell Distribution Width 13.4 % (13.2-15.2); White Blood Count 9.3 K/mm3 (4.5-11.0)
[2016-09-27 05:38] LABS: Alanine Aminotransferase 22 units/L (7-56); Albumin 2.4 g/dL (3.9-5); Albumin/Globulin Ratio 0.7 %; Alkaline Phosphatase 42 units/L (35-129); Bilirubin,Total 1.3 mg/dL (0.1-1.2); Blood Urea Nitrogen 13 mg/dL (7-17); Calcium 7.5 mg/dL (8.4-10.2); Carbon Dioxide 23 mmol/L (22-30); Chloride 106.6 mmol/L (98-107); Glucose 90 mg/dL (65-100); Potassium 3.3 mmol/L (3.6-5.0); Sodium 141 mmol/L (137-145); Total Protein 5.7 g/dL (6.3-8.2)
[2016-09-27 05:52] LABS: Anion Gap 15 mmol/L
[2016-09-27] MEDS: HEPARIN SUB-Q SCH ×2 (06:22→15:05)
[2016-09-27] MEDS: NOVOLOG SUB-Q SCH ×3 (06:22→18:30)
--- NOTE | 2016-09-27 09:08 | Progress Note ---
Assessment and Plan IMP: doing well 2nd post op day. PLAN: GI soft diet. May go home with drain if tolerates diet. Would see in office in a week. Subjective Date of service: 09/27/16 Patient Reports: Positive: no new complaints, feels better, voiding w/o difficulty, flatus Objective - Abdomen soft, tender (mild, op site), bowel sounds normal, wound (dressings dry and clear. Drain in place) - Labs 09/27/16 04:47 09/27/16 04:47 Diabetes panel 09/27/16 Range/Units 04:47 Sodium 141 (137-145) mmol/L Potassium 3.3 L (3.6-5.0) mmol/L Chloride 106.6 (98-107) mmol/L Carbon Dioxide 23 (22-30) mmol/L BUN 13 (7-17) mg/dL Creatinine 0.4 L (0.7-1.2) mg/dL Glucose 90 (65-100) mg/dL Calcium 7.5 L (8.4-10.2) mg/dL AST 45 H (5-40) units/L ALT 22 (7-56) units/L Alkaline Phosphatase 42 (35-129) units/L Total Protein 5.7 L (6.3-8.2) g/dL Albumin 2.4 L (3.9-5) g/dL Calcium panel 09/27/16 Range/Units 04:47 Calcium 7.5 L (8.4-10.2) mg/dL Albumin 2.4 L (3.9-5) g/dL Pituitary panel 09/27/16 Range/Units 04:47 Sodium 141 (137-145) mmol/L Potassium 3.3 L (3.6-5.0) mmol/L Chloride 106.6 (98-107) mmol/L Carbon Dioxide 23 (22-30) mmol/L BUN 13 (7-17) mg/dL Creatinine 0.4 L (0.7-1.2) mg/dL Glucose 90 (65-100) mg/dL Calcium 7.5 L (8.4-10.2) mg/dL Adrenal panel 09/27/16 09/27/16 Range/Units 04:47 04:47 Sodium 141 (137-145) mmol/L Potassium 3.3 L (3.6-5.0) mmol/L Chloride 106.6 (98-107) mmol/L Carbon Dioxide 23 (22-30) mmol/L BUN 13 (7-17) mg/dL Creatinine 0.4 L (0.7-1.2) mg/dL Glucose 90 (65-100) mg/dL Calcium 7.5 L (8.4-10.2) mg/dL Total Bilirubin 1.3 H 1.0 (0.1-1.2) mg/dL AST 45 H (5-40) units/L ALT 22 (7-56) units/L Alkaline Phosphatase 42 (35-129) units/L Total Protein 5.7 L (6.3-8.2) g/dL Albumin 2.4 L (3.9-5) g/dL
[2016-09-27] MEDS: SENOKOT S PO SCH (10:00)
[2016-09-27] MEDS: NORCO 5/325 PO PRN (15:50)
--- NOTE | 2016-09-27 23:39 | Progress Note ---
Assessment and Plan 1. Acute cholecystitis Day 2 postop day open cholecystectomy 2. Hypertension: Controlled. 3. T2DM: Controlled. Continue with sliding scale insulin. Consequently collided diet when patient resumes oral feeding 4. Leukocytosis secondary to cholecystitis 5. Hyperbilirubinemia: Now Within normal limits 6. Hypokalemia: Supplement. Check magnesium level. Subjective Date of service: 09/27/16 Principal diagnosis: acute cholecystitis status post cholecystectomy Interval history: Passing flatus. No bowel movement yet. Has postoperative abdominal pain controlled on medication Objective - Constitutional Vitals: Vital Signs - 12hr 09/27/16 09/27/16 09/27/16 15:56 20:00 23:23 Temperature 97.8 F 101.1 F H Pulse Rate [ 80 94 H Left Brachial] Respiratory 17 20 22 Rate Blood Pressure 128/77 132/64 [Left Arm] O2 Sat by Pulse 96 100 Oximetry General appearance: Present: no acute distress, well-nourished - EENT Eyes: PERRL, EOM intact ENT: hearing intact, clear oral mucosa Ears: bilateral: normal - Neck Neck: supple, normal ROM - Respiratory Respiratory effort: normal Respiratory: bilateral: CTA - Cardiovascular Rhythm: regular Heart Sounds: Present: S1 & S2. Absent: gallop, rub Extremities: pulses intact, No edema, normal color, Full ROM - Gastrointestinal General gastrointestinal: Present: soft, tender, non-distended, normal bowel sounds, hypoactive bowel sounds - Integumentary Integumentary: clear, warm, dry - Musculoskeletal Musculoskeletal: 1, strength equal bilaterally - Neurologic Neurologic: moves all extremities - Psychiatric Psychiatric: memory intact, appropriate mood/affect, intact judgment & insight - Labs CBC & Chem 7: 09/27/16 04:47 09/27/16 04:47 Labs: Abnormal lab results 09/27/16 09/27/16 09/27/16 Range/Units 04:47 04:47 18:17 RBC 2.92 L (3.65-5.03) M/mm3 Hgb 9.7 L (10.1-14.3) gm/dl Hct 29.1 L (30.3-42.9) % MCV 100 H (79-97) fl MCH 33 H (28-32) pg Lymph % (Auto) 11.5 L (13.4-35.0) % [place] % (Auto) 8.6 H (0.0-7.3) % Lymph # 1.1 L (1.2-5.4) K/mm3 Seg Neutrophils % 79.7 H (40.0-70.0) % Potassium 3.3 L (3.6-5.0) mmol/L Creatinine 0.4 L (0.7-1.2) mg/dL POC Glucose 177 H (70-105) Calcium 7.5 L (8.4-10.2) mg/dL Total Bilirubin 1.3 H (0.1-1.2) mg/dL AST 45 H (5-40) units/L Total Protein 5.7 L (6.3-8.2) g/dL Albumin 2.4 L (3.9-5) g/dL
[2016-09-28] MEDS: TYLENOL PO PRN (00:15)
[2016-09-28] MEDS: KCL 10MEQ/100ML 10 MEQ/100 ML BAG IV SCH ×2 (01:00)
[2016-09-28] MEDS: NOVOLOG SUB-Q SCH ×4 (02:01→17:41)
[2016-09-28] MEDS: ZOSYN/NS 4.5GM/100ML 4.5 GM/100 ML VIAL IV SCH ×3 (02:06→17:06)
[2016-09-28] MEDS: HEPARIN SUB-Q SCH ×3 (06:00→22:20)
[2016-09-28 07:13] LABS: Basophils % (Auto) 0.2 % (0.0-1.8); Hematocrit 29.6 % (30.3-42.9); Hemoglobin 9.9 gm/dl (10.1-14.3); Mean Corpuscular HGB Conc 34 % (30-34); Mean Corpuscular Hemoglobin 34 pg (28-32); Mean Corpuscular Volume 101 fl (79-97); Platelet Count 193 K/mm3 (140-440); Red Blood Count 2.94 M/mm3 (3.65-5.03); Red Cell Distribution Width 12.7 % (13.2-15.2); White Blood Count 8.8 K/mm3 (4.5-11.0)
[2016-09-28 07:48] LABS: Alanine Aminotransferase 23 units/L (7-56); Albumin 2.3 g/dL (3.9-5); Albumin/Globulin Ratio 0.7 %; Alkaline Phosphatase 44 units/L (35-129); Anion Gap 15 mmol/L; Bilirubin,Total 0.9 mg/dL (0.1-1.2); Blood Urea Nitrogen 8 mg/dL (7-17); Calcium 7.4 mg/dL (8.4-10.2); Carbon Dioxide 25 mmol/L (22-30); Chloride 104.1 mmol/L (98-107); Glucose 83 mg/dL (65-100); Magnesium 1.9 mg/dL (1.7-2.3); Potassium 3.3 mmol/L (3.6-5.0); Sodium 141 mmol/L (137-145); Total Protein 5.8 g/dL (6.3-8.2)
[2016-09-28] MEDS: NORCO 5/325 PO PRN ×2 (11:35→16:28)
--- NOTE | 2016-09-28 16:49 | Progress Note ---
Assessment and Plan 1. Acute cholecystitis Day 3 postop day open cholecystectomy 2. Hypertension: Controlled. 3. T2DM: Controlled. Continue with sliding scale insulin. Consequently collided diet when patient resumes oral feeding 4. Leukocytosis secondary to cholecystitis 5. Hypokalemia: We will replete further. Mg Level Nl at 1.9 DC home if patient is tolerating regular diet. Subjective Date of service: 09/28/16 Principal diagnosis: acute cholecystitis status post cholecystectomy Interval history: Passing flatus. No bowel movement yet. Has postoperative abdominal pain controlled on medication. Denies any fever Objective - Constitutional Vitals: Vital Signs - 12hr 09/28/16 09/28/16 09/28/16 08:00 11:35 12:35 Temperature 99.6 F Pulse Rate [ 67 Left Brachial] Respiratory 16 20 20 Rate Respiratory Rate [Abdomen] Blood Pressure 138/83 [Left Arm] O2 Sat by Pulse 100 Oximetry 09/28/16 09/28/16 12:51 16:28 Temperature Pulse Rate [ Left Brachial] Respiratory 20 Rate Respiratory 20 Rate [Abdomen] Blood Pressure [Left Arm] O2 Sat by Pulse Oximetry General appearance: Present: no acute distress - EENT Eyes: PERRL, scleral icterus ENT: hearing intact, clear oral mucosa Ears: bilateral: normal - Neck Neck: supple, enlarged thyroid - Respiratory Respiratory effort: normal Respiratory: bilateral: CTA - Cardiovascular Rhythm: regular Heart Sounds: Present: S1 & S2 Extremities: no ischemia - Gastrointestinal General gastrointestinal: Present: soft, non-tender - Genitourinary Female genitourinary: normal - Integumentary Integumentary: clear, warm, dry - Musculoskeletal Musculoskeletal: 1, strength equal bilaterally - Neurologic Neurologic: moves all extremities - Psychiatric Psychiatric: memory intact, appropriate mood/affect, intact judgment & insight - Labs CBC & Chem 7: 09/28/16 05:57 09/28/16 05:57 Labs: Abnormal lab results 09/27/16 09/28/16 09/28/16 Range/Units 18:17 05:57 05:57 RBC 2.94 L (3.65-5.03) M/mm3 Hgb 9.9 L (10.1-14.3) gm/dl Hct 29.6 L (30.3-42.9) % MCV 101 H (79-97) fl MCH 34 H (28-32) pg RDW 12.7 L (13.2-15.2) % [place] % (Auto) 8.6 H (0.0-7.3) % Seg Neutrophils % 72.6 H (40.0-70.0) % Potassium 3.3 L (3.6-5.0) mmol/L Creatinine 0.5 L (0.7-1.2) mg/dL POC Glucose 177 H (70-105) Calcium 7.4 L (8.4-10.2) mg/dL AST 49 H (5-40) units/L Total Protein 5.8 L (6.3-8.2) g/dL Albumin 2.3 L (3.9-5) g/dL
[2016-09-28] MEDS ORDERED: KCL 10MEQ/100ML 10 MEQ/100 ML BAG IV SCH (17:00)
[2016-09-29] MEDS: NOVOLOG SUB-Q SCH ×4 (01:44→16:59)
[2016-09-29] MEDS: ZOSYN/NS 4.5GM/100ML 4.5 GM/100 ML VIAL IV SCH ×3 (02:15→17:53)
[2016-09-29] MEDS: NORCO 5/325 PO PRN (03:37)
[2016-09-29] MEDS: HEPARIN SUB-Q SCH ×2 (05:45→13:36)
--- NOTE | 2016-09-29 10:04 | Query-Anemia ---
Kenny HughesOBIEKWE Date:__09/29/2016 Sheep Clipper/CDS:Antonieta Castro Phone#: Exercise your independent professional judgment when responding to this query. Questions asked do not imply a particular answer is desired or expected. We greatly appreciate your clarification on this issue. Clinical Documentation States: The patient was admitted for Acute Cholecystitis. Open Cholecystectomy was performed on 09/25/2016. "Estimated blood loss: 400 mL" ( Te Colindres M.D. in Operative Report on 2015). 09/24 09/27 RBC 4.09 m/mm3 2.92 m/mm3 Hgb 13.5 gm/dl 9.7 gm/dl Hct 40.3% 29.1% Treatment: [ ] Iron Supplements [ ] Vitamin Supplements [ ] Transfusion(s) Units [ ] Other: Etiology: [ ] Anemia due to acute blood loss [ ] Anemia due to chronic blood loss [ ] Anemia secondary to ESRD [ ] Anemia secondary to neoplastic disease [ ] Iron deficiency anemia due to malabsorption [ ] GI Bleed from: [ ] Anemia of chronic disease ,Other: [ ] Precipitous Drop in Hemoglobin [ ] Precipitous Drop in Hematocrit [ ] Other: [ ] Unable to determine [ ] Comment/Explanation: Present on Admission: [ ] Yes (Y) [ ] Clinically undeterminable (W) [ ] No (N) Please also document response in your Progress Notes and/or Discharge Summary and indicate if the condition was present on admission. RYAND
--- NOTE | 2016-09-29 13:15 | Progress Note ---
Assessment and Plan IMP: doing well after open cholecystectomy. PLAN: change dressings. May go home with drain from surgery point of view, will see in office in a week, Subjective Date of service: 09/29/16 Patient Reports: Positive: no new complaints, tolerating a regular diet, voiding w/o difficulty, flatus Objective Vital Signs - 12hr 09/29/16 09/29/16 08:00 09:05 Temperature 98.4 F Pulse Rate [ 64 64 Left Brachial] Respiratory 18 Rate Blood Pressure 140/80 [Left Arm] O2 Sat by Pulse 100 Oximetry - Abdomen soft, not tender, bowel sounds normal, wound (dressings dry and clear, wound healing well), other (drain with minimal drainage) - Labs 09/28/16 05:57 09/28/16 05:57
[2016-09-29] MEDS: TYLENOL PO PRN (15:07)
--- NOTE | 2016-09-29 20:31 | Discharge Summary ---
Providers - Providers Date of Admission: 09/25/16 04:33 Date of discharge: 09/29/16 Attending physician: TAMICA BRUCE Primary care physician: TMAICA BRUCE Hospitalization Condition: Stable Disposition: STILL A PATIENT Exam - Constitutional Vitals: Temp Pulse Resp BP Pulse Ox 98.9 F 88 18 133/70 98 09/29/16 18:06 09/29/16 18:06 09/29/16 18:06 09/29/16 18:06 09/29/16 18:06 Plan Follow up with: PRIMARY CAREMD [Referring] - 3-5 Days
[2016-09-30 00:19] VITALS: BP 149/78
--- NOTE | 2016-10-03 09:38 | Query-Infection ---
Dear Date:_10/03/16 Drywall Foreman/CDS:Natalie/Gee Ralph Phone#:_[phone] Exercise your independent professional judgment when responding to this query. Questions asked do not imply a particular answer is desired or expected. We greatly appreciate your clarification on this issue. Clinical Documentation States: 66 Y/O Female admitted on 09/25/16 with abdominal pain noted to have acute cholecystitis. Laparoscopic cholecystectomy converted to open after "finding a very large gall bladder with very thickened abreu containing multiple large gallstones covered with omental adhesions. The anatomy at the mick hepatis was confusing and there was oozing from the dissected adhesions so at this time we decided to open the abdominal cavity." per operative note. Clinical findings show: (please check applicable parameters) Infection, known /suspected, with some of the following indicators; Specify the infection: Acute Cholecystitis WBC: 14.7 HR: 129 on 09/25/16 RR: 20 on 09/25/16 Given IV Piperacillin/Tazobactam and cefazolin 3 General parameters [ ] Fever (core temp >38.30C or 100.40F) [ ] Hypothermia (core temp <36C) [ ] Heart rate >90 bpm [ ] Tachypnea: >20 bpm or pCO2 < 32 mmHg [ ] Altered mental status [ ] Significant edema / +ve fluid balance (>20 ml/kg 24 h) [ ] Hyperglycemia (Bl. glucose >110 mg/dl) w/o diabetes Inflammatory parameters [ ] Leukocytosis (white blood cell count >12,000/l) [ ] Leukopenia (white blood cell count <4,000/l) [ ] Bandemia (immature WBC > 10%) [ ] Leucocyte Left Shift [ ] Plasma procalcitonin>2 SD above the normal value Hemodynamic and tissue perfusion parameters [ ] Arterial hypotension(SBP <90 mmHg, MAP <70 mmHg,or a SBP drop >40 mmHg in adults) [ ] Hyperlactatemia (>3 mmol/l) [ ] Anion Gap (> 11mEG/l) [ ] Decreased capillary refill or mottling Organ dysfunction parameters [ ] Arterial hypoxemia (PaO2/FIO2 <300) [ ] Creatinine increase =0.5 mg/dl [ ] Acute oliguria (urine output <0.5 ml | kg |h or 45 mM/l for at least 2 hrs) [ ] Coagulation abnormalities (INR >1.5 or activated partial thromboplastin time >60 s) [ ] Ileus (absent abdias wel sounds) [ ] Thrombocytopenia (platelet count <100,000/l) [ ] Hyperbilirubinemia (plasma total bilirubin >4 mg/dl) According to the clinical indications above, can Bacteremia be further specified? If so, please indicate below and in your Progress Notes and/ or Discharge Summary. Indicate if the condition was present on admission. PHYSICIAN RESPONSE: [x ] Sepsis [ ] Severe Sepsis [ ] Septic Shock [ ] Septicemia [ ] Sepsis now resolved [ ] SIRS due to non-infectious cause with organ dysfunction [ ] SIRS due to non-infectious cause without organ dysfunction [ ] Other: [ ] Comment/Explanation: Present on Admission: [ y] Yes (Y) [ ] Clinically undeterminable (W) [ ] No (N) [ ] Ruled Out Please also document response in your Progress Notes and/or Discharge Summary and indicate if the condition was present on admission Notes: SIRS/ SIRS WITH ORGAN DYSFUNCTION Systemic inflammatory response syndrome (SIRS) generally refers to the systemic response to trauma/bell or other insult such as Acute Myocardial Infarction, Acute Pancreatitis, and Major Surgery with symptoms including fever, tachycardia , tachypnea, and leukocytosis (1). BACTEREMIA Presence of viable bacteria in the circulating blood (2). This term is reserved for patients that do not manifest above SIRS response. SEPTICEMIA Generally refers to a systemic disease associated with the presence of pathological microorganisms or toxins in the blood, which can include bacteria, viruses, fungi or other organisms (1). SEPSIS Generally refers to SIRS due infection (1). SEVERE SEPSIS Generally refers to sepsis associated with acute organ dysfunction (1). SEPTIC SHOCK Generally refers to circulatory failure associated with severe sepsis (2), and defined as hypotension or hypoperfusion despite adequate fluid resuscitation (1 hour) (3). REFERENCES: 1. [place] [employer]/Society of Critical Care Medicine Consensus Conference. Definitions for sepsis and organ failure and guidelines for the use of innovative therapies in sepsis. Critical Care Med 1992;20:864 - 74. 2. Paulo y MM, Cedric MP, Ricky ANTONI, Mono E, Daryl D, Darvin D, Mayito J, Marilee SM , Darryl JL, Pat G; International Sepsis Definitions Conference. 2001 SCCM/ESICM/ACCP/ATS/SIS International Sepsis Definitions Conference. Intensive Care Med. 2002 Apr;29(4):530-8. Epub 2002Nov 18. Review. PubMed PMID:[id number] 3. ICD-9-CM Official Guidelines for Coding and Reporting 4. Medscape Drugs, Diseases and Procedures references 5. [employer] Textbook of Internal Medicine. 18th Edition MTDD
== END 2016-09-30 01:12 | disposition home or self-care (01) | DRG 854 ==
LOC: ED 15:04 → 3A 09-25 04:33 → 2B-SURG 09-25 08:15
PROVIDERS: ADMIT Internal Medicine; ATTEND Internal Medicine
PROC: 0FT40ZZ Resection of Gallbladder, Open Approach (ICD-10-PCS; principal; 2016-09-25)
PROC: 0W9F00Z Drainage of Abdominal Wall with Drainage Device, Open Approach (ICD-10-PCS; 2016-09-25)
PROC: 0FJ44ZZ Inspection of Gallbladder, Percutaneous Endoscopic Approach (ICD-10-PCS; 2016-09-25)
DX: A41.9 Sepsis, unspecified organism (principal); K80.00 Calculus of gallbladder with acute cholecystitis without obstruction; E44.1 Mild protein-calorie malnutrition; K66.0 Peritoneal adhesions (postprocedural) (postinfection); M19.90 Unspecified osteoarthritis, unspecified site; E11.9 Type 2 diabetes mellitus without complications; I10 Essential (primary) hypertension; H40.9 Unspecified glaucoma; E87.6 Hypokalemia; E80.6 Other disorders of bilirubin metabolism; Z98.51 Tubal ligation status; Z68.32 Body mass index [BMI] 32.0-32.9, adult; Z82.49 Family history of ischemic heart disease and other diseases of the circulatory system; Z79.899 Other long term (current) drug therapy; Z79.84 Long term (current) use of oral hypoglycemic drugs
CPT/HCPCS: 36415; 76705; 80053; 81001; 82248; 82550; 82553; 82962; 83036; 83690; 83735; 84484; 85014; 85018; 85025; 88304; 93005; 93010; 96365; 96366; 96375; A4217; J0690; J1100; J1170; J1644; J1650; J2250; J2270; J2405; J2543; J2704; J2710; J3480; J7030